=== PATIENT | male | born 1955 | race African-American/Black ===

== ENCOUNTER 2016-12-31 19:28 | Emergency (ER) | payer OTHER ==
[~2016-12-31] VITALS: Ht 172.7 cm; Wt 91.5 kg
[~2016-12-31 19:28] MED LIST: ASPIR-LOW81 MG PO; CHILD ASPIRIN81 M1 PO; HYTRIN10 MG PO; INDOCIN25 MG PO; NAPROSYN500 MG PO; NORCO 5/3251 TABLET PO; NORVASC10 MG PO; PERCOCET 5/31 TABLET PO; RYBIX ODT50 MG PO; Tylenol Regular Stre PO
[2016-12-31] MEDS ORDERED: COLCHICINE0.6 M1 PO (21:40)
[2016-12-31] MEDS ORDERED: PERCOCET 5/31 TABLET PO (21:40)
[2016-12-31 22:12] VITALS: BP 148/71
== END 2016-12-31 22:13 | disposition home or self-care (01) ==
LOC: EME 19:28 → EXP 21:04
DX: M10.9 Gout, unspecified (principal); I10 Essential (primary) hypertension
CPT/HCPCS: 99281; 99284